=== PATIENT | male | born 1960 ===

== ENCOUNTER 2020-01-04 19:32 | Emergency (ER) ==
--- NOTE | 2020-01-04 21:38 | EKG REPORT ---
SEVERITY:- OTHERWISE NORMAL ECG - SINUS TACHYCARDIA : Confirmed by: Oscar Holman 04-Jan-2020 21:36:34
== END 2020-01-04 20:51 | disposition left against medical advice (07) ==
LOC: ER 19:32
DX: Z53.21 Procedure and treatment not carried out due to patient leaving prior to being seen by health care provider (principal)
CPT/HCPCS: 93005; 93010